=== PATIENT | male | born 1995 | race Caucasian/White ===

== ENCOUNTER 2021-03-29 22:11 | Emergency (ER) | payer OTHER ==
--- NOTE | 2021-03-30 00:56 | ED ---
General Adult HPI - General Chief complaint: Nausea/Vomiting/Diarrhea Stated complaint: Chest pain, Abdominal Pain, Vomiting Time Seen by Provider: 03/30/21 00:31 Source: patient Mode of arrival: ambulatory Limitations: no limitations - History of Present Illness Initial comments: This patient is a 25-year-old man who presents to be evaluated for headache, myalgias, generalized fatigue and weakness. The patient states that when he woke up this morning he felt like he "had a hangover," but he states he had not been drinking. He noticed he was feeling like he may have some chills or low- grade fever. Onset/Timin -: days(s) Location: head, chest, back, left, right, lower extremity Quality: aching Consistency: constant Improves with: none Worsens with: none Associated Symptoms: malaise, nausea/vomiting - Related Data Home Medications Medication Instructions Recorded Confirmed No Known Home Medications 01/14/16 01/14/16 Allergies Allergy/AdvReac Type Severity Reaction Status Date / Time ibuprofen AdvReac Nausea Verified 03/29/21 22:33 Review of Systems ROS Statement: Those systems with pertinent positive or pertinent negative responses have been documented in the HPI. ROS Other: All systems not noted in ROS Statement are negative. Constitutional: Reports: chills Cardiovascular: Denies: chest pain, palpitations Gastrointestinal: Reports: nausea. Denies: abdominal pain, vomiting, diarrhea Genitourinary: Denies: dysuria Musculoskeletal: Reports: myalgia. Denies: back pain Skin: Denies: rash Neurological: Denies: headache, weakness, numbness Past Medical History Past Medical History: No Reported History History of Any Multi-Drug Resistant Organisms: None Reported Past Surgical History: No Surgical Hx Reported Past Psychological History: No Psychological Hx Reported Smoking Status: Never smoker Past Alcohol Use History: Occasional Past Drug Use History: Marijuana General Exam Limitations: no limitations General appearance: alert, in no apparent distress Head exam: Present: atraumatic, normocephalic Eye exam: Present: normal appearance. Absent: scleral icterus, conjunctival injection Neck exam: Present: normal inspection Respiratory exam: Present: normal lung sounds bilaterally. Absent: respiratory distress, wheezes, rales, rhonchi, stridor Cardiovascular Exam: Present: regular rate, normal rhythm, normal heart sounds. Absent: systolic murmur, diastolic murmur, rubs, gallop GI/Abdominal exam: Present: soft. Absent: distended, tenderness, guarding, rebound, rigid, mass Extremities exam: Present: normal inspection, normal capillary refill. Absent: pedal edema, calf tenderness Back exam: Present: normal inspection. Absent: CVA tenderness (R), CVA tenderness (L) Neurological exam: Present: alert Skin exam: Present: warm, dry, intact, normal color. Absent: rash Course Vital Signs 03/29/21 03/30/21 22:33 01:08 Temperature 101 F H 98.7 F Pulse Rate 119 H 100 Respiratory 20 15 Rate Blood Pressure 125/71 101/78 O2 Sat by Pulse 96 96 Oximetry EKG Findings - EKG Results: EKG: interpreted by ERMD, sinus rhythm, normal axis, normal QRS, normal ST/T, no acute changes EKG shows: tachycardia (Rate 102 BPM) Medical Decision Making - Lab Data Lab Results 03/29/21 Range/Units 22:38 Coronavirus (PCR) Detected A (Not Detectd) Disposition Clinical Impression: COVID-19 Disposition: HOME SELF-CARE Condition: Good Instructions (If sedation given, give patient instructions): Coronavirus Disease 2019 (COVID-19) Is patient prescribed a controlled substance at d/c from ED?: No Referrals: Susan Pérez MD [Primary Care Provider] - 1-2 days
[2021-03-30] MEDS ORDERED: ACETAMINOPHEN TAB 325 MG TAB PO STA (00:57)
[2021-03-30 01:09] VITALS: BP 101/78; PULSE 100; RESP 15; TEMP 98.7
== END 2021-03-30 01:13 | disposition home or self-care (01) ==
LOC: EC 22:11
DX: U07.1 COVID-19 (principal); Z88.6 Allergy status to analgesic agent
CPT/HCPCS: 87635; 93005; 99285

== ENCOUNTER 2021-09-29 05:51 | Emergency (ER) | payer OTHER ==
[2021-09-29 05:56] VITALS: BP 131/86; PULSE 66; RESP 18; TEMP 97.6
[2021-09-29] MEDS ORDERED: AMOXIC-POT CLAV 875-125MG 1 EACH TAB PO STA (06:15)
[2021-09-29] MEDS ORDERED: Acetaminophen-Codeine 300-30mg TAB PO STA (06:15)
--- NOTE | 2021-09-29 06:18 | ED ---
ENT HPI - General Chief complaint: Dental/Oral Stated complaint: Dental Pain Time Seen by Provider: 09/29/21 06:05 Source: patient, RN notes reviewed Mode of arrival: ambulatory Limitations: no limitations - History of Present Illness Initial comments: This is a 26-year-old male who presents to the emergency department for dental pain. The pain is in the right upper wisdom tooth. Patient states that he has had ongoing problems with his teeth for the past 12 years, however this tooth started becoming painful 3-4 days ago. He has been told that to have his teeth pulled, he has to pay $500 per tooth, which he is unable to afford. He is trying to find a dentist that will work with his insurance to offer better prices. Tylenol and Orajel are not improving his symptoms and the pain is now spreading to the right temporal area. Denies any fevers, chills, sore throat, cough, dyspnea, chest pain, palpitations, abdominal pain, nausea, vomiting, diarrhea, back pain, or headaches. MD complaint: tooth pain Onset/Timin -: days(s) Location: tooth # (1) - Related Data Previous Rx's Medication Instructions Recorded Acetaminophen-Codeine 300-30mg 1 tab PO Q6H PRN 3 Days #12 tablet 09/29/21 [Tylenol w/codeine #3] Amoxic-Pot Clav 875-125Mg 1 tab PO Q12HR 7 Days #14 tab 09/29/21 [Augmentin 875-125] Allergies Allergy/AdvReac Type Severity Reaction Status Date / Time ibuprofen AdvReac Nausea Verified 09/29/21 05:56 Review of Systems ROS Statement: Those systems with pertinent positive or pertinent negative responses have been documented in the HPI. ROS Other: All systems not noted in ROS Statement are negative. Past Medical History Past Medical History: No Reported History History of Any Multi-Drug Resistant Organisms: None Reported Past Surgical History: No Surgical Hx Reported Past Psychological History: No Psychological Hx Reported Smoking Status: Never smoker Past Alcohol Use History: Occasional Past Drug Use History: Marijuana General Exam Limitations: no limitations General appearance: alert, in no apparent distress Head exam: Present: atraumatic, normocephalic, normal inspection Expanded Teeth exam: Present: dental caries (Diffuse), fractured tooth # (1), dental tenderness # (1 - surrounding erythema and swelling, no palpable abscess.) Respiratory exam: Present: normal lung sounds bilaterally. Absent: respiratory distress, wheezes, rales, rhonchi, stridor Cardiovascular Exam: Present: regular rate, normal rhythm, normal heart sounds. Absent: systolic murmur, diastolic murmur, rubs, gallop, clicks Neurological exam: Present: alert, oriented X3, CN II-XII intact Psychiatric exam: Present: normal affect, normal mood Skin exam: Present: warm, dry, intact, normal color. Absent: rash Course Vital Signs 09/29/21 05:52 Temperature 97.6 F Pulse Rate 66 Respiratory 18 Rate Blood Pressure 131/86 O2 Sat by Pulse 97 Oximetry Medical Decision Making - Medical Decision Making This is a 26-year-old male who presents to the emergency department for dental pain. Patient has multiple dental caries and poor dental hygiene. The right upper molar is surrounded by erythematous gums with swelling. There is also significant sensitivity to the area. There is no palpable abscess for drainage. Patient given Rx for Augmentin and Tylenol #3, with the first dosage of each provided in the emergency department. He was provided with a list of local dentists and advised to follow up as soon as possible for definitive management. Return precautions reviewed in depth, the patient is instructed to return to the emergency department with any new, worsening, or concerning symptoms. Patient verbalized understanding. This case was discussed in detail with the attending ED physician. Presentation, findings, and treatment plan discussed in detail as well. Disposition Clinical Impression: Dental infection Disposition: HOME SELF-CARE Instructions (If sedation given, give patient instructions): Dental Abscess (ED), Toothache (ED) Additional Instructions: Return to the emergency department with any new, worsening, or concerning symptoms. Make sure that you contact a dentist for an appointment as soon as you are able to do so for definitive management. Prescriptions: Amoxic-Pot Clav 875-125Mg [Augmentin 875-125] 1 tab PO Q12HR 7 Days #14 tab Acetaminophen-Codeine 300-30mg [Tylenol w/codeine #3] 1 tab PO Q6H PRN 3 Days #12 tablet PRN Reason: Pain Is patient prescribed a controlled substance at d/c from ED?: Yes When asked, does pt state using other controlled substances?: No If prescribed controlled substance>3 days was MAPS reviewed?: Prescribed <3 Days Referrals: None,Stated [Primary Care Provider] - 1-2 days
== END 2021-09-29 06:34 | disposition home or self-care (01) ==
LOC: EC 05:51
DX: K04.7 Periapical abscess without sinus (principal); Z88.6 Allergy status to analgesic agent
CPT/HCPCS: 99282